=== PATIENT | male | born 1995 | race Caucasian/White ===

== ENCOUNTER 2016-05-08 13:17 | Emergency (ER) | payer OTHER ==
[2016-05-08] MEDS ORDERED: DIPH,PERTUS(ACELL)TETVAC-LF 0.5 ML VIAL IM ONE (13:26)
[2016-05-08 13:29] VITALS: BP 166/96; PULSE 66; RESP 16; TEMP 97.7
--- NOTE | 2016-05-08 13:34 | ED ---
Wound/Laceration HPI - General Stated Complaint: thumb lac-[facility] Time Seen by Provider: 05/08/16 13:23 Source: RN notes reviewed - History of Present Illness Initial Comments: Patient patient is a 21 year-old male presents to the emergency room for evaluation of right thumb pain. Patient states he was at work and his right thumb got caught under a gun safe. Patient states that he is experiencing right thumb pain along with abrasions over his thumb and over his left third digit. Patient states he's afraid he broke his thumb. Patient states he is not up-to-date on his tetanus vaccine. Patient denies any other injuries during incident. Review of Systems ROS Statement: Those systems with pertinent positive or pertinent negative responses have been documented in the HPI. ROS Other: All systems not noted in ROS Statement are negative. General Exam - General Exam Comments Initial Comments: Sitting in exam room, no acute distress. Limitations: no limitations General appearance: alert Head exam: Present: atraumatic, normocephalic, normal inspection Eye exam: Present: normal appearance ENT exam: Present: normal exam Neck exam: Present: normal inspection Respiratory exam: Absent: respiratory distress Right Hand Wrist exam: Present: tenderness (Tenderness on palpating over MCP joint and DIP joint of the thumb), swelling, abrasion (3 skin avulsions on the palmar portion of the thumb between the MCP and DIP joints). Absent: normal inspection , full ROM (Limited flexion and extension secondary to pain) Vascular: Present: normal capillary refill (Capillary refill less than 2 seconds ), radial pulse (2+), ulnar pulse (2+) Left Hand Wrist exam: Present: full ROM, abrasion (Skin avulsion on the palmar portion of the proximal phalanx of the third digit). Absent: tenderness, swelling Vascular: Present: normal capillary refill (Capillary refill less than 2 seconds ), radial pulse (2+), ulnar pulse (2+) Back exam: Present: normal inspection Neurological exam: Present: alert, oriented X3, CN II-XII intact, normal gait Psychiatric exam: Present: normal affect, normal mood Skin exam: Present: warm, dry. Absent: rash Course Vital Signs 05/08/16 13:24 Temperature 97.7 F Pulse Rate 66 Respiratory 16 Rate Blood Pressure 166/96 O2 Sat by Pulse 98 Oximetry Medical Decision Making - Medical Decision Making Patient is a 21-year-old female since emergency room for evaluation of right thumb injury and skin avulsions of right thumb and left third digit. Avulsions were cleaned and covered with bacitracin and dressing. Right thumb x-ray shows no acute fractures or dislocations. Advised patient to follow-up with his primary care provider if symptoms do not improve in 7-10 days. Patient states he understands everything that was discussed with him. Return parameters discussed. - Radiology Data Radiology results: report reviewed, image reviewed Disposition Clinical Impression: Avulsion of skin of finger, Sprain of right thumb Disposition: HOME SELF-CARE Condition: Good Instructions: Skin Avulsion (ED), Finger Sprain (ED) Additional Instructions: Clean wound area 3 times a day with antibacterial soap and water. Cover wounds with antibiotic ointment. Take Tylenol or Motrin as needed for pain. Please follow up with primary care provider in 7-10 days if symptoms do not improve. If any new symptom arises or symptoms worsen return to ER as soon as possible. Referrals: Jason Hassan MD [Primary Care Provider] - 1-2 days Time of Disposition: 13:53
--- NOTE | 2016-05-08 13:51 | XR ---
EXAMINATION TYPE: XR finger RT DATE OF EXAM: 05/08/2016 1:43 PM COMPARISON: Right hand x-rays January 13, 2009. HISTORY: Jamming injury with pain TECHNIQUE: 3 views of right thumb are obtained. FINDINGS: There is no acute fracture or dislocation in the right thumb. A well-corticated 2 mm fragme nt at pulmonary base of first distal phalanx is presumed old fracture or more likely sesamoid bone. J oint spaces are preserved. Overlying soft tissue is unremarkable. IMPRESSION: No acute fracture or dislocation in the right thumb is evident.
== END 2016-05-08 14:33 | disposition home or self-care (01) ==
LOC: EC 13:17
DX: S63.601A Unspecified sprain of right thumb, initial encounter (principal); S61.011A Laceration without foreign body of right thumb without damage to nail, initial encounter; S61.213A Laceration without foreign body of left middle finger without damage to nail, initial encounter; W23.0XXA Caught, crushed, jammed, or pinched between moving objects, initial encounter; Y99.0 Civilian activity done for income or pay; Z23 Encounter for immunization
CPT/HCPCS: 90471; 90715; 99283